=== PATIENT | male | born 2000 | race Caucasian/White ===

== ENCOUNTER 2020-07-02 14:53 | Emergency (ER) | payer OTHER ==
[2020-07-02] MEDS ORDERED: PROMETHAZINE HCL INJ 25 MG/1 ML VIAL IV ONE (15:37)
--- NOTE | 2020-07-02 15:42 | ER Document Report ---
ED General - General Stated Complaint: NAUSEA,CHILLS,VOMITNG Time Seen by Provider: 07/02/20 15:08 Mode of Arrival: Ambulatory Information source: Patient Notes: 19-year-old male coming in today with intractable vomiting. States he was out consuming alcohol last night. Reports 10 mixed drinks in the period of 4 hours. Denies fevers and chills. Denies diarrhea. Denies cough cold and congestion. Patient states that he does not consume large volumes of alcohol on a regular basis. Not have any chronic medical problems. Past Medical History - Social History Smoking Status: Unknown if Ever Smoked Family History: Reviewed & Not Pertinent Review of Systems - Review of Systems Notes: Constitutional: No fevers. No chills. EENT: No eye redness. No eye pain. No ear pain. No sore throat. Cardiovascular: No chest pain. No palpitations. Respiratory: No cough. No shortness of breath. No respiratory distress. Gastrointestinal: + n/v -diarrhea Genitourinary: Atraumatic. No lesions. No pain. No discharge. Musculoskeletal: Atraumatic. No swelling. No deformities. Skin: No rash or lesions. Lymphatic: No swollen lymph nodes. Neurologic: No headache. No syncope. Psychiatric: No suicidal or homicidal ideation. Physical Exam - Vital signs Vitals: Temp Pulse Resp BP Pulse Ox 98.0 F 96 20 141/87 H 100 07/02/20 15:01 07/02/20 15:01 07/02/20 15:01 07/02/20 15:01 07/02/20 15:01 - Notes Notes: General: Well-developed, well-nourished. In no acute distress. Non-toxic appearing. Cardiac: Well-perfused. Regular rate and rhythm. No murmurs, rubs, or gallops. Pulmonary: No respiratory distress. No cyanosis. Bilateral lung wade are clear to auscultation. Abdominal: Non-distended. Non-rigid. Bowels sounds are present in all four quadrants. No guarding or rebound. HEENT: Head is atraumatic. Conjunctivae not reddened. No tearing. PERRL. EOMI. Orbits atraumatic. No periorbital swelling or erythema. Oropharynx is without erythema, swelling, or exudates. Dry mucous membrane Neck: Supple. No adenopathy. No meningismus. Dermatologic: Warm with good turgor. No rash. Atraumatic. Chest: Atraumatic. No chest wall tenderness to palpation. Musculoskeletal: Moves all extremities well. No range of motion deficits. no muscular or joint tenderness. No paraspinal muscle tenderness. no midline spinal tenderness or step-off. Genitourinary: Examination deferred Neurologic: No gross neurologic deficits. Psychiatric: Normal mood. Course - Re-evaluation Re-evalutation: 07/02/20 15:41 Patient has normal vital signs but does appear mildly clinically dehydrated. We will get some lab work including a lipase just to make sure he is not suffering from alcohol induced pancreatitis. Phenergan and fluids are ordered. 07/02/20 18:18 Patient's labs are all resulted. No evidence of any acute abnormalities. No evidence of any pancreatitis. He is tolerating fluids at this time. We will treat him for gastritis. Zofran ODT take-home pack will be dispensed. Advised him to take Pepcid 20 mg tablets [id number] twice a day for the next 5 days. - Vital Signs Vital signs: Temp Pulse Resp BP Pulse Ox 98.0 F 96 20 141/87 H 100 07/02/20 15:01 07/02/20 15:01 07/02/20 15:01 07/02/20 15:01 07/02/20 15:01 - Laboratory Result Diagrams: 07/02/20 15:39 07/02/20 15:39 Laboratory results interpreted by me: 07/02/20 15:39 Calcium 10.4 H Albumin 5.1 H Discharge - Discharge Clinical Impression: Elevated blood pressure reading Acute gastritis Qualifiers: Gastritis type: unspecified gastritis Gastritis bleeding: without bleeding Qualified Code(s): K29.00 - Acute gastritis without bleeding Condition: Good Disposition: HOME, SELF-CARE Instructions: Gastritis ([facility]), Nausea or Vomiting, Nonspecific ([facility]) Additional Instructions: As we discussed, I recommend that you get [id number] Pepcid also known as famotidine and take 20 mg twice a day for the next 5 days. Please avoid alcohol, tobacco products, spicy foods, and acidic drinks to allow your stomach to heal. Zofran 1 tablet under the tongue every 4 hours as needed for nausea. Follow-up as needed with the [facility]. Forms: Elevated Blood Pressure
[2020-07-02] MEDS: RINGERS SOLUTION,LACTATED 1,000 ML IV PRN ×2 (15:47→16:37)
[2020-07-02 16:30] LABS: ABSOLUTE EOSINOPHILS # (AUTO) 0.1 10^3/uL (0.0-0.6); ABSOLUTE LYMPHOCYTES (AUTO) 1.3 10^3/uL (0.5-4.7); ABSOLUTE MONOCYTES (AUTO) 0.4 10^3/uL (0.1-1.4); ABSOLUTE NEUT (AUTO) 5.4 10^3/uL (1.7-8.2); BASOPHILS % (AUTO) 0.6 % (0-2); EOSINOPHILS % (AUTO) 1.1 % (0-6); HEMATOCRIT 46.8 % (37.9-51.0); HEMOGLOBIN 16.8 g/dL (13.5-17.0); LYMPHOCYTES % (AUTO) 18.7 % (13-45); MEAN CORPUSCULAR HEMOGLOBIN 31.7 pg (27.0-33.4); MEAN CORPUSCULAR HGB CONC 35.9 g/dL (32.0-36.0); MEAN CORPUSCULAR VOLUME 88 fl (80-97); MONOCYTES % (AUTO) 5.4 % (3-13); PLATELET COUNT 253 10^3/uL (150-450); RED CELL DISTRIBUTION WIDTH 13.7 % (11.5-14.0); SEGMENTED NEUTROPHILS % (AUTO) 74.2 % (42-78); TOTAL CELLS COUNTED % (AUTO) 100 %; WHITE BLOOD COUNT 7.2 10^3/uL (4.0-10.5)
[2020-07-02 16:52] LABS: ALBUMIN 5.1 g/dL (3.5-5.0); ALKALINE PHOSPHATASE 65 U/L (38-126); ANION GAP 13 (5-19); ASPARTATE AMINO TRANSFERASE 36 U/L (17-59); BILIRUBIN,TOTAL 0.9 mg/dL (0.2-1.3); BLOOD UREA NITROGEN 11 mg/dL (7-20); CALCIUM 10.4 mg/dL (8.4-10.2); CARBON DIOXIDE 26 mmol/L (22-30); CHLORIDE 104 mmol/L (98-107); GLUCOSE 96 mg/dL (75-110); POTASSIUM 3.9 mmol/L (3.6-5.0); TOTAL PROTEIN 7.9 g/dL (6.3-8.2)
[2020-07-02 18:08] LABS: APPEARANCE,URINE CLEAR; BILIRUBIN,URINE NEGATIVE (NEGATIVE); COLOR,URINE YELLOW; GLUCOSE, URINE NEGATIVE (NEGATIVE); KETONES,URINE NEGATIVE (NEGATIVE); PROTEIN,URINE NEGATIVE (NEGATIVE); URINE SPECIFIC GRAVITY 1.012; UROBILINOGEN,URINE NEGATIVE mg/dL (<2.0)
[2020-07-02] MEDS ORDERED: ONDANSETRON ODT 4 MG TAB (6 TAB/ER DISP) PO PRN (18:21)
[2020-07-02 18:33] VITALS: BP 131/75
== END 2020-07-02 18:30 | disposition home or self-care (01) ==
LOC: ER 14:53
DX: K29.00 Acute gastritis without bleeding (principal); R11.2 Nausea with vomiting, unspecified; R03.0 Elevated blood-pressure reading, without diagnosis of hypertension
CPT/HCPCS: 99284; 96375; 96365; 96366; 36415; 83690; 85025; 80053; 81001; J2550; J7120